=== PATIENT | female | born 2000 | race Caucasian/White ===

== ENCOUNTER 2022-07-12 13:56 | Emergency (ER) | payer OTHER ==
[2022-07-12 14:09] VITALS: RESP 18; BMI 25.7
[2022-07-12 16:00] VITALS: BP 115/74; PULSE 80; TEMP 98.3
[2022-07-12 17:35] LABS: EPI CELLS 34 /uL (0-25.1); HYALINE CASTS 0 /uL (0-3.1); URINE APPEARANCE CLEAR; URINE BACTERIA 504 /uL (0-1359); URINE BILIRUBIN NEGATIVE (NEGATIVE); URINE COLOR YELLOW; URINE GLUCOSE (UA) NEGATIVE (NEGATIVE); URINE KETONE NEGATIVE (NEGATIVE); URINE LEUK ESTERASE TRACE (NEGATIVE); URINE NITRITE NEGATIVE (NEGATIVE); URINE PROTEIN NEGATIVE (NEGATIVE); URINE RBC 4 /uL (0-23.9); URINE UROBILINOGEN 0.2 mg/dL (0.2-1.0); URINE WBC 38 /uL (0-25.8)
== END 2022-07-12 19:24 | disposition home or self-care (01) ==
LOC: JER 13:56
DX: O26.892 Other specified pregnancy related conditions, second trimester (principal); R10.9 Unspecified abdominal pain; Z3A.23 23 weeks gestation of pregnancy
CPT/HCPCS: 76816-TC; 81003; 87086; 99284-25

== ENCOUNTER 2022-11-08 01:52 | Inpatient (IN) | payer OTHER ==
[2022-11-08] MEDS ORDERED: ELECTROLYTE-148 SOLN 500 ML IV ONE (02:50)
[2022-11-08] MEDS ORDERED: PROMETHAZINE HCL 25 MG/1 ML VIAL IVPB ONE (03:15)
[2022-11-08] MEDS ORDERED: BUTORPHANOL TARTRATE 1 MG/ML VIAL IVPB ONE (03:15)
[2022-11-08] MEDS ORDERED: PROMETHAZINE HCL 25 MG/1 ML VIAL ONE (03:18)
[2022-11-08] MEDS ORDERED: BUTORPHANOL TARTRATE 2 MG/ML VIAL ONE (03:18)
[2022-11-08] MEDS ORDERED: ELECTROLYTE-148 SOLN 1,000 ML IV SCH (03:20)
[2022-11-08 03:28] LABS: BASO % 0.2 % (0-2.0); EOS % 0.1 % (0-4.5); HEMATOCRIT 38.3 % (32.4-45.2); HEMOGLOBIN 12.5 GM/dL (10.7-15.3); LYMPH % 13.5 % (8-40); MCH 28.1 pg (25.7-33.7); MCHC 32.7 g/dl (32.0-36.0); MONO % 5.3 % (3.8-10.2); NEUT % 80.9 % (42.8-82.8); PLATELET COUNT 195 10^3/uL (134-434); RBC 4.45 M/mm3 (3.60-5.2); RDW 14.3 % (11.6-15.6); WHITE BLOOD COUNT 11.7 K/mm3 (4.0-10.0)
[2022-11-08 03:32] LABS: INR 0.96 (0.83-1.09)
[2022-11-08 03:34] LABS: ACTIVATED PTT 24.1 SECONDS (25.2-36.5)
[2022-11-08 03:45] LABS: BLOOD UREA NITROGEN 9.2 mg/dL (7-18); CALCIUM 8.9 mg/dL (8.5-10.1)
[2022-11-08 03:49] LABS: CREATININE 0.4 mg/dL (0.55-1.3)
[2022-11-08 04:04] VITALS: BMI 30.4
[2022-11-08] MEDS ORDERED: FENTANYL/BUPIVACAINE/NS/PF - PCEA - 50 ML DISP.SYRIN EP ONE ×2 (07:45→12:52)
[2022-11-08] MEDS ORDERED: BUPIVACAINE HCL/PF 0.25% (2.5MG/ML) 10 ML VIAL ONE ×2 (08:15→09:08)
[2022-11-08] MEDS: FENTANYL/BUPIVACAINE/NS/PF - PCEA - 50 ML DISP.SYRIN EP SCH ×2 (08:40→13:00)
[2022-11-08] MEDS: ELECTROLYTE-148 SOLN 1,000 ML IV SCH ×2 (08:45→13:00)
[2022-11-08] MEDS ORDERED: OXYTOCIN 30 UNITS in 0.9% NS 30 UNIT/500 ML INFUS.BAG IVPB ONE (08:58)
[2022-11-08] MEDS: OXYTOCIN 30 UNITS in 0.9% NS 30 UNIT/500 ML INFUS.BAG IVPB SCH (09:00)
[2022-11-08] MEDS ORDERED: NALOXONE HCL 0.4 MG/ML VIAL IVPUSH PRN (10:36)
[2022-11-08] MEDS ORDERED: AMPICILLIN - 2 GM in SODIUM CHLORIDE 100 ML IVPB ONE (13:00)
[2022-11-08] MEDS ORDERED: AMPICILLIN SODIUM 2 GM VIAL ONE (13:05)
[2022-11-08] MEDS ORDERED: OXYTOCIN 20 UNITS in 0.9% NS 20 UNIT/1,000 ML INFUS.BAG IV ONE ×3 (14:27→17:30)
[2022-11-08] MEDS ORDERED: CITRIC ACID/SODIUM CITRATE 30 ML UNIT-DOSE CUP PO ONE (14:30)
[2022-11-08] MEDS ORDERED: LIDO 2%/EPI 1:200000 PRESRVFRE (20 ML SDVIAL) ONE (15:04)
[2022-11-08] MEDS ORDERED: SODIUM BICARBONATE 8.4% 50 MEQ/50 ML VIAL ONE (15:04)
[2022-11-08] MEDS ORDERED: ACETAMINOPHEN INJECTION 100 ML IVPB ONE (15:05)
[2022-11-08] MEDS ORDERED: ceFAZolin SODIUM 1 GM VIAL ONE (15:24)
[2022-11-08] MEDS ORDERED: OXYTOCIN 10 UNITS/ML VIAL ONE (15:30)
[2022-11-08] MEDS ORDERED: ONDANSETRON 4 MG/2 ML VIAL ONE (15:45)
[2022-11-08] MEDS ORDERED: MIDAZOLAM HCL 2 MG/2 ML SINGLE DOSE VIAL ONE (15:50)
[2022-11-08] MEDS ORDERED: IBUPROFEN 600 MG TABLET (FP) PO PRN (16:11)
[2022-11-08] MEDS ORDERED: ACETAMINOPHEN 325 MG TABLET (FP) PO PRN (16:11)
[2022-11-08] MEDS ORDERED: SIMETHICONE 80 MG TAB.CHEW (FP) PO PRN (16:11)
[2022-11-08] MEDS ORDERED: METHYLERGONOVINE MALEATE 0.2 MG/1 ML AMP IM PRN (16:11)
[2022-11-08] MEDS ORDERED: IBUPROFEN 800 MG/8 ML IJ IVPB PRN (16:13)
[2022-11-08] MEDS ORDERED: FENTANYL CITRATE/PF 50 MCG/ML VIAL ONE (16:17)
[2022-11-08] MEDS ORDERED: ONDANSETRON 4 MG/2 ML VIAL IVPUSH PRN (16:34)
[2022-11-08 16:36] LABS: CORD BASE EXCESS -4.1 mmol/L (0-2); CORD HCO3 23.4 mmHg (20-29); CORD PCO2 51.8 mmHg (30-78); CORD pH 7.273 (7.14-7.44)
[2022-11-08] MEDS: OXYTOCIN 20 UNITS in 0.9% NS 20 UNIT/1,000 ML INFUS.BAG IV SCH (17:30)
[2022-11-08] MEDS ORDERED: ceFAZolin 2 GRAM PREMIX BAG IVPB SCH (18:00)
[2022-11-08] MEDS: CEFAZOLIN SODIUM 2 GM in DEXTROSE 5%-WATER 100 ML IVPB SCH (22:35)
[2022-11-09] MEDS: OXYTOCIN 20 UNITS in 0.9% NS 20 UNIT/1,000 ML INFUS.BAG IV SCH (03:08)
[2022-11-09] MEDS ORDERED: oxyCODONE HCL 5 MG TABLET PO PRN ×2 (04:11)
[2022-11-09] MEDS: CEFAZOLIN SODIUM 2 GM in DEXTROSE 5%-WATER 100 ML IVPB SCH ×2 (06:11→15:53)
[2022-11-09 07:55] LABS: BASO % 0.2 % (0-2.0); EOS % 0.2 % (0-4.5); HEMATOCRIT 32.3 % (32.4-45.2); HEMOGLOBIN 10.7 GM/dL (10.7-15.3); LYMPH % 13.3 % (8-40); MCH 28.4 pg (25.7-33.7); MCHC 33.2 g/dl (32.0-36.0); MEAN CELL VOLUME 85.6 fl (80-96); MEAN PLT VOLUME 7.8 fl (7.5-11.1); MONO % 6.2 % (3.8-10.2); NEUT % 80.1 % (42.8-82.8); PLATELET COUNT 165 10^3/uL (134-434); RBC 3.77 M/mm3 (3.60-5.2); WHITE BLOOD COUNT 10.7 K/mm3 (4.0-10.0)
[2022-11-09] MEDS: ENOXAPARIN NA (PORCINE) 40 MG/0.4 ML DISP.SYRIN SQ SCH (10:55)
[2022-11-09] MEDS ORDERED: BISACODYL 10 MG SUPP.RECT RC PRN (16:11)
[2022-11-10] MEDS: ENOXAPARIN NA (PORCINE) 40 MG/0.4 ML DISP.SYRIN SQ SCH (10:44)
[2022-11-10] MEDS: FENTANYL/BUPIVACAINE/NS/PF - PCEA - 50 ML DISP.SYRIN EP SCH ×2 (19:49→19:50)
[2022-11-10] MEDS: OXYTOCIN 30 UNITS in 0.9% NS 30 UNIT/500 ML INFUS.BAG IVPB SCH (19:50)
[2022-11-10] MEDS: OXYTOCIN 20 UNITS in 0.9% NS 20 UNIT/1,000 ML INFUS.BAG IV SCH (19:50)
[2022-11-10] MEDS: ELECTROLYTE-148 SOLN 1,000 ML IV SCH (19:51)
[2022-11-10 21:54] VITALS: RESP 16
[2022-11-11 08:12] LABS: BASO % 0.5 % (0-2.0); EOS % 1.4 % (0-4.5); HEMATOCRIT 33.4 % (32.4-45.2); LYMPH % 15.6 % (8-40); MCH 28.2 pg (25.7-33.7); MCHC 32.9 g/dl (32.0-36.0); MEAN CELL VOLUME 85.8 fl (80-96); MEAN PLT VOLUME 7.5 fl (7.5-11.1); MONO % 4.9 % (3.8-10.2); NEUT % 77.6 % (42.8-82.8); PLATELET COUNT 279 10^3/uL (134-434); RBC 3.89 M/mm3 (3.60-5.2); RDW 14.1 % (11.6-15.6); WHITE BLOOD COUNT 11.1 K/mm3 (4.0-10.0)
[2022-11-11] MEDS: ENOXAPARIN NA (PORCINE) 40 MG/0.4 ML DISP.SYRIN SQ SCH (09:27)
[2022-11-11 09:46] VITALS: BP 129/85; PULSE 90; TEMP 98.2
== END 2022-11-11 16:00 | disposition home or self-care (01) | DRG 540 ==
LOC: JDEL 01:52 → JLDR 02:50 → J3W 17:48
PROVIDERS: ADMIT Obstetrics & Gynecology; ATTEND Obstetrics & Gynecology
PROC: 10D00Z1 Extraction of Products of Conception, Low, Open Approach (ICD-10-PCS; principal; 2022-11-08)
DX: O62.0 Primary inadequate contractions (principal); O76 Abnormality in fetal heart rate and rhythm complicating labor and delivery; O48.0 Post-term pregnancy; Z3A.40 40 weeks gestation of pregnancy; Z37.0 Single live birth
CPT/HCPCS: 36415; 36600; 59025; 71045-TC-FY; 80048; 82803; 85025; 85610; 85730; 86780; 86850; 86900; 86901; 88307-TC; C9803-CS; U0003; U0005